=== PATIENT | male | born 1940 | race Caucasian/White ===

== ENCOUNTER 2016-10-25 11:48 | Emergency (ER) | payer MEDICARE ==
[2016-10-25 12:05] VITALS: BP 154/90
--- NOTE | 2016-10-25 12:13 | UC ---
Throat Pain/Nasal [place] HPI - HPI Summary HPI Summary: complaint of nasal congestion and cough that started approx 10 days ago headache across his forehead throat feels itchy from sinus drainage ears are popping often denies fever ,chills, body aches took some benadryl to help him sleep - History of Current Complaint Chief Complaint: UCRespiratory Stated Complaint: SINUS COMPLAINT Time Seen by Provider: 10/25/16 12:06 Hx Obtained From: Patient Cough: Productive Associated Signs & Symptoms: Positive: Sinus Discomfort, Nasal Discharge - Allergies/Home Medications Allergies/Adverse Reactions: Allergies Allergy/AdvReac Type Severity Reaction Status Date / Time Niacin AdvReac Rash Verified 10/25/16 12:01 PMH/Surg Hx/FS Hx/Imm Hx Previously Healthy: Yes Endocrine History Of: Denies: Diabetes Cardiovascular History Of: Reports: Cardiac Disorders - A FIB, recent neg nuclear test (02/2016), Hypertension - ON MEDS, Atrial Fibrillation Denies: Pacemaker/ICD, Congestive Heart Failure GI/ History Of: Reports: Gastroesophageal Reflux - on omeprazole Denies: Renal Disease Other History Of: Anticoagulant Therapy - 325mg ASA - Surgical History Surgical History: Yes Surgery Procedure, Year, and Place: 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 APPENDIX AGE 15 - Family History Known Family History: Positive: Cardiac Disease - father Negative: Hypertension, Diabetes - Social History Occupation: Retired Alcohol Use: Rare Substance Use Type: None Smoking Status (MU): Never Smoked Tobacco Review of Systems Constitutional: Negative Skin: Negative Eyes: Negative ENT: Nasal Discharge Respiratory: Cough Cardiovascular: Negative Gastrointestinal: Negative Genitourinary: Negative Motor: Negative Neurovascular: Negative Musculoskeletal: Negative Neurological: Negative Psychological: Negative All Other Systems Reviewed And Are Negative: Yes Physical Exam Triage Information Reviewed: Yes Appearance: No Pain Distress, Well-Nourished Vital Signs: Initial Vital Signs Temp 99.7 F 10/25/16 12:02 Pulse 84 10/25/16 12:02 Resp 16 10/25/16 12:02 BP 154/90 10/25/16 12:02 Pulse Ox 97 10/25/16 12:02 Vital Signs Reviewed: Yes Eyes: Positive: Conjunctiva Clear ENT: Positive: Pharyngeal erythema, Nasal congestion, Nasal drainage, TM bulging , Other: - frontal sinus tenderness. Negative: TM red Neck: Positive: No Lymphadenopathy Respiratory: Positive: Lungs clear, Normal breath sounds, No respiratory distress Cardiovascular: Positive: No Murmur, Pulses Normal, Other: - regularly irregular heart sounds Abdomen Description: Positive: Nontender, Soft Bowel Sounds: Positive: Present Musculoskeletal: Positive: No Edema Neurological: Positive: Alert Psychological Exam: Normal Skin Exam: Normal Throat Pain/Nasal Course/Dx - Course Course Of Treatment: exam completed. will treat w/antibiotics d/t length of time and frontal sinus tenderness - Differential Dx/Diagnosis Differential Diagnosis/HQI/PQRI: Otitis Media, Pharyngitis, Sinusitis, URI Provider Diagnoses: sinusitis Discharge - Discharge Plan Condition: Stable Disposition: HOME Prescriptions: Amoxicillin/Clavulanate TAB* [Augmentin TAB 875*] 875 mg PO BID #20 tab guaiFENesin ER TAB [Mucinex*] 600 mg PO BID #10 tab.er Patient Education Materials: Sinusitis (ED) Referrals: Vincent Ascencio MD [Primary Care Provider] - Additional Instructions: Please take antibiotic as directed. flush sinuses with normal saline twice a day Increase fluids and rest Take acetaminophen for fever or pain Please review your discharge instructions. If your symptoms do not improve please call your primary care provider or return to urgent care.
== END 2016-10-25 12:39 | disposition home or self-care (01) ==
LOC: UCEAST 11:48
DX: J32.9 Chronic sinusitis, unspecified (principal); I48.91 Unspecified atrial fibrillation; Z79.82 Long term (current) use of aspirin; Z88.3 Allergy status to other anti-infective agents; I10 Essential (primary) hypertension
CPT/HCPCS: 99212; G0463

== ENCOUNTER 2016-10-25 20:11 | Emergency (ER) | payer MEDICARE ==
--- NOTE | 2016-10-25 22:03 | RAD ---
INDICATION: Shortness of breath and cold symptoms x2 weeks COMPARISON: Chest x-ray dated March 09, 2016 TECHNIQUE: Single AP portable view of the chest was obtained. FINDINGS: Image quality is compromised due to the relative inferiority of a portable chest x-ray. The heart and mediastinum exhibit normal size and contour. There is faint atherosclerotic calcification at the arch of the aorta. The lungs are grossly clear. There is no evidence of a large pleural effusion. Visualized bones are normal for the patient's age. IMPRESSION: No radiographic evidence for acute cardiopulmonary abnormality on this portable chest x-ray.
--- NOTE | 2016-10-25 22:15 | ED ---
[place] Ron Claudia, scribed for Nicko Cat MD on 10/25/16 at 2138 . Complex/Multi-Sys Presentation - HPI Summary HPI Summary: 75 year old male presents to the ED with fever. Pt went to [facility] this pm for cough and congestion that has persisted for about 5 days. Pt was given Augmentin and d/c with Dx of sinusitis. When Pt returned home he noticed a fever of 104F and became concerned so he came to the ED. PMHx of AFIB and takes xarelto. - History Of Current Complaint Chief Complaint: EDGeneral Time Seen by Provider: 10/25/16 21:05 Hx Obtained From: Patient, Family/[employer] Onset/Duration: Gradual Onset, Lasting Days, Still Present Associated Signs And Symptoms: Positive: Cough, Fever, Other - congestion. Negative: SOB - Allergies/Home Medications Allergies/Adverse Reactions: Allergies Allergy/AdvReac Type Severity Reaction Status Date / Time Niacin AdvReac Rash Verified 10/25/16 12:01 PMH/Surg Hx/FS Hx/Imm Hx Previously Healthy: Yes Endocrine/Hematology History: Reports: Hx Anticoagulant Therapy - 325mg ASA Denies: Hx Diabetes Cardiovascular History: Reports: Hx Hypercholesterolemia, Hx Hypertension - ON MEDS, Other Cardiovascular Problems/Disorders - AFIB Denies: Hx Congestive Heart Failure, Hx Pacemaker/ICD Respiratory History: Denies: Other Respiratory Problems/Disorders - DENIES GI History: Reports: Other GI Disorders - ANAL FISSURE, COLON POLYPS, GERD History: Reports: Hx Kidney Infection Denies: Hx Renal Disease, Other Problems/Disorders Musculoskeletal History: Comment Only: Hx Back Problems - Low back pain Sensory History: Reports: Hx Contacts or Glasses Denies: Hx Deafness - Deaf in R ear, Hx Hearing Aid Opthamlomology History: Reports: Hx Contacts or Glasses Psychiatric History: Denies: Hx Panic Disorder - Surgical History Surgery Procedure, Year, and Place: 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 APPENDIX AGE 15 Hx Anesthesia Reactions: No Infectious Disease History: No Infectious Disease History: Denies: History Other Infectious Disease, Traveled Outside the [place] in Last 30 Days - Family History Known Family History: Positive: Cardiac Disease - father Negative: Hypertension, Diabetes - Social History Occupation: Employed Full-time Lives: With Family Alcohol Use: Rare Substance Use Type: Reports: None Hx Tobacco Use: No Smoking Status (MU): Never Smoked Tobacco Review of Systems Positive: Fever Eyes: Negative Positive: Other - sinus pain and chest congestion Cardiovascular: Negative Respiratory: Negative Gastrointestinal: Negative Genitourinary: Negative Musculoskeletal: Negative Skin: Negative Neurological: Negative Psychological: Normal All Other Systems Reviewed And Are Negative: Yes Physical Exam Triage Information Reviewed: Yes Vital Signs On Initial Exam: Initial Vitals Temp Pulse Resp BP Pulse Ox 99.8 F 96 18 182/102 96 10/25/16 20:24 10/25/16 20:24 10/25/16 20:24 10/25/16 20:24 10/25/16 20:24 Vital Signs Reviewed: Yes Appearance: Positive: Well-Appearing - comfortable, plesant, alert Eyes: Positive: EOMI, FLAKO ENT: Positive: TMs normal - TMs pearly white with no effusion bilaterally, Other - moist mucosa, no sinus percussion tenderness. Negative: Pharyngeal erythema Neck: Positive: Supple, Nontender Respiratory/Lung Sounds: Positive: Clear to Auscultation - good air movement. Negative: Rales Cardiovascular: Positive: IRR - somewhat irregualr rhythm 88 beats/min, S1, S2. Negative: Murmur, Rub, Tachycardia Abdomen Description: Positive: Nontender, Soft - flat Musculoskeletal: Positive: Other - no calf pitting edema. Negative: Edema Left , Edema Right Neurological: Positive: Alert, Oriented to Person Place, Time Psychiatric: Positive: Other - logical and coherent Diagnostics - Vital Signs Vital Signs Temp Pulse Resp BP Pulse Ox 10/25/16 21:21 92 158/106 95 10/25/16 21:19 85 96 10/25/16 21:18 148/118 10/25/16 21:10 99.5 F 84 16 158/106 96 10/25/16 20:24 99.8 F 96 18 182/102 96 - Laboratory Lab Statement: Any lab studies that have been ordered have been reviewed, and results considered in the medical decision making process. - Radiology CHEST XRAY Xray Interpretation: No Acute Changes - NO RADIOGRAPHIC EVIDENCE FOR ACUTE CARDIOPULMONARY ABNORMALITY ON THIS PORTABLE CHEST XRAY Radiology Interpretation Completed By: Radiologist Complex Multi-Symp Course/Dx Assessment/Plan: Doing quite well. Vital signs within nml limits, comfortable no signs of pneumonia on the chest xray . He has been placed on Augmentin an cough medicine and I believe this is appropriate for sinusitis, his chief complaint is head congestion and sinus pain. His cough appears mild; there are no significant risk factors for other diseases or infection. He and his will return from any worsening Sx otherwise start Augmentin and follow-up with PCP. - Diagnoses Provider Diagnoses: URI (upper respiratory infection) Discharge - Discharge Plan Condition: Good Disposition: HOME Patient Education Materials: Upper Respiratory Infection (ED) Referrals: Vincent Ascencio MD [Primary Care Provider] - 2 Days The documentation as recorded by the [place] luque Claudia accurately reflects the service I personally performed and the decisions made by me, Nicko Cat MD.
[2016-10-25 22:25] VITALS: BP 148/85
== END 2016-10-25 22:25 | disposition home or self-care (01) ==
LOC: ED 20:11
DX: J06.9 Acute upper respiratory infection, unspecified (principal); R50.9 Fever, unspecified; R05 Cough; R09.89 Other specified symptoms and signs involving the circulatory and respiratory systems; R06.02 Shortness of breath; J32.9 Chronic sinusitis, unspecified; I48.91 Unspecified atrial fibrillation; Z79.82 Long term (current) use of aspirin; Z88.3 Allergy status to other anti-infective agents; I10 Essential (primary) hypertension
CPT/HCPCS: 71010; 99212; 99283; G0463

== ENCOUNTER 2017-11-06 12:21 | Emergency (ER) | payer MEDICARE ==
[2017-11-06] MEDS ORDERED: Magnesium CITRATE* 300 ML BTL PO ONE ×2 (12:47→14:42)
--- NOTE | 2017-11-06 13:48 | ED ---
Abdominal Pain/Male - HPI Summary HPI Summary: Patient presents to the ED with CC of constipation. Last BM 10 days ago. Endorses bilateral lower quadrant pain. He has been feeling otherwise well. Recently discontinued amlodipine 2 weeks ago and placed on metroprolol. Also recently finished a course of antibiotics for a sinus infection, but doesn't recall the name. Hx of HTN and [place]. Currently on blood thinners. He is otherwise healthy and remains active. at bedside. Denies fevers, sweats, chills, chest pain, SOB, N/V/D. Symptoms are aggravated by nothing, alleviated by nothing. He has tried stool softeners without relief. He has been eating and drinking well until last night when he had early satiety last night at dinner. Has not eaten today. Passing gas until yesterday. Not burping. VS stable on arrival. Takes all medications and denies smoking or ETOH. - History of Current Complaint Chief Complaint: EDAbdPain Stated Complaint: ABD PAIN Time Seen by Provider: 11/06/17 12:34 Hx Obtained From: Patient Onset/Duration: Gradual Onset Timing: Constant Severity Initially: Moderate Severity Currently: Moderate Pain Intensity: 5 Pain Scale Used: 0-10 Numeric Location: Diffuse - lower bilateral quadrants Aggravating Factor(s): Nothing Alleviating Factor(s): Nothing Associated Signs And Symptoms: Positive: Negative - Risk Factors Testicular Torsion: Negative Cardiac Risk Factors: Hypertension - Allergies/Home Medications Allergies/Adverse Reactions: Allergies Allergy/AdvReac Type Severity Reaction Status Date / Time Niacin AdvReac Rash Verified 10/25/16 12:01 PMH/Surg Hx/FS Hx/Imm Hx Previously Healthy: Yes Endocrine/Hematology History: Reports: Hx Anticoagulant Therapy - 325mg ASA Denies: Hx Diabetes Cardiovascular History: Reports: Hx Hypercholesterolemia, Hx Hypertension - ON MEDS, Other Cardiovascular Problems/Disorders - AFIB Denies: Hx Congestive Heart Failure, Hx Pacemaker/ICD Respiratory History: Denies: Other Respiratory Problems/Disorders - DENIES GI History: Reports: Other GI Disorders - ANAL FISSURE, COLON POLYPS, GERD History: Reports: Hx Kidney Infection Denies: Hx Renal Disease, Other Problems/Disorders Musculoskeletal History: Comment Only: Hx Back Problems - Low back pain Sensory History: Reports: Hx Contacts or Glasses Denies: Hx Deafness - Deaf in R ear, Hx Hearing Aid Opthamlomology History: Reports: Hx Contacts or Glasses Psychiatric History: Denies: Hx Panic Disorder - Surgical History Surgery Procedure, Year, and Place: 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 APPENDIX AGE 15 Hx Anesthesia Reactions: No - Immunization History Hx Pertussis Vaccination: No Immunizations Up to Date: Unable to Obtain/Confirm Infectious Disease History: No Infectious Disease History: Denies: History Other Infectious Disease, Traveled Outside the [place] in Last 30 Days - Family History Known Family History: Positive: Cardiac Disease - father Negative: Hypertension, Diabetes - Social History Occupation: Employed Full-time Lives: With Family Alcohol Use: Rare Hx Substance Use: No Substance Use Type: Reports: None Hx Tobacco Use: No Smoking Status (MU): Never Smoked Tobacco Review of Systems - ROS Summary Review of Systems Summary: Constitutional: The patient denies fever, KERR. HEENT: Head: The patient denies headaches or dizziness. Eyes: The patient denies diplopia, blurry vision, eye pain, eye discharge, photophobia. Throat: The patient denies sore throats or hoarseness. Cardiovascular: The patient denies chest pain, palpitations, syncope, night cramps, or orthostasis. Respiratory: The patient denies cough, sputum production, hemoptysis, dyspnea, wheezing. Gastrointestinal: The patient denies odynophagia, dysphagia, hematemesis, melenemesis. Denies nausea or vomiting. Denies diarrhea. Endorses constipation x 10 days Genitourinary: Patient denies dysuria, hematuria, or pyuria. Patient denies back pain. Denies vaginal discharge, vaginal bleeding. Denies other urinary symptoms. Endocrine: The patient denies polydipsia, polyuria, or polyphagia. Muscles: The patient denies myalgia, strain or weakness. Joints: The patient denies arthralgia and/or arthritis. Constitutional: Negative Negative: Fever, Chills, Fatigue Eyes: Negative Cardiovascular: Negative Respiratory: Negative Positive: Abdominal Pain, Other - constipation Positive: no symptoms reported, see HPI Musculoskeletal: Negative Skin: Negative Neurological: Negative All Other Systems Reviewed And Are Negative: Yes Physical Exam - Summary Physical Exam Summary: Appearance: WDW, comfortable, pleasant, alert Skin: Soft dry skin, no lesions. Nailbeds pink with no cyanosis or clubbing. No petechia noted. Eyes: FLAKO, EOMI, Conjunctiva pink with no redness or exudates. Mouth: Dentition without lesions. Moist mucosa Neck: Full range of motion. Palpable thyroid. Trachea at midline. No lymphadenopathy. Pulm: Chest symmetrical expansion. No deformities on posterior chest wall. Lungs clear to auscultation and percussion, without adventitious sounds. CV: No JVD. No deformities on anterior chest wall. Heart sounds. RRR, Normal S1 and single S2. No S3, S4, rubs, or murmurs. Carotids 2+ bilaterally without bruits. . exam not performed GI: Bowel sounds absent in all 4 quadrants. No pain on deep palpation of all 4 quadrants. Negative ibarra's, negative obturator. Psoas not performed. No pain over mcburney's point. Musculoskeletal: Flexion and extension of neck without limitations. ROM WNL in all extremities. No deformities noted. Pulses full and equal. Neuro: Motor strength is 5/5 in upper and lower extremities bilaterally. A&OX3 Psych: Logical, coherent Triage Information Reviewed: Yes Vital Signs On Initial Exam: Initial Vitals Temp Pulse Resp BP Pulse Ox 97.0 F 68 15 139/88 98 11/06/17 12:25 11/06/17 12:25 11/06/17 12:25 11/06/17 12:25 11/06/17 12:25 Vital Signs Reviewed: Yes Appearance: Positive: Well-Appearing, Well-Nourished Skin: Positive: Warm, Skin Color Reflects Adequate Perfusion Head/Face: Positive: Normal Head/Face Inspection Eyes: Positive: EOMI, FLAKO, Conjunctiva Clear Neck: Positive: Supple, Nontender, No Lymphadenopathy Respiratory/Lung Sounds: Positive: Clear to Auscultation, Breath Sounds Present Cardiovascular: Positive: Normal, RRR, Pulses are Symmetrical in both Upper and Lower Extremities Bowel Sounds: Positive: Absent Musculoskeletal: Positive: Normal, Strength/ROM Intact Neurological: Positive: Speech Normal Psychiatric: Positive: Affect/Mood Appropriate AVPU Assessment: Alert - Arlen Coma Scale Coma Scale Total: 15 Diagnostics - Vital Signs Vital Signs Temp Pulse Resp BP Pulse Ox 11/06/17 12:25 97.0 F 68 15 139/88 98 - Laboratory Result Diagrams: 11/06/17 13:56 11/06/17 13:56 Lab Statement: Any lab studies that have been ordered have been reviewed, and results considered in the medical decision making process. Abdominal Pain Fem Course/Dx - Course Course Of Treatment: During the course of treatement, patient is evaluated for constipation. VS stable and he is in NAD. Patient is given mag citrate 150ml bottle. Xray obtained which shows constipation. He is given 300ml bottle mag citrate to home. To take 3-4 hours from now (1/2 bottle) and the other 1/2 before bed or in the morning. Drink plenty of water and follow up Wednesday with PCP. If symptoms fail to improve or burping or failing to pass gas - patient will return to the ED. Treatment options explained to patient. Patient understands the plan, voices no concerns at this time and understands the return precatuions given to them if they develop any worsening or changing symptoms. They are OK for discharge at this time. VS stable on discharge. Primary care follow up as agreed on discharge. - Diagnoses Differential Diagnosis/HQI/PQRI: Constipation Provider Diagnoses: Constipation Discharge - Discharge Plan Condition: Stable Disposition: HOME Patient Education Materials: Magnesium Citrate (By mouth), Constipation (ED) Referrals: Vincent Ascencio MD [Primary Care Provider] - Additional Instructions: Dx. Constipation As discussed, there are no signs of obstrucction and
[2017-11-06 14:09] LABS: ABS Basophils 0 10^3/ul (0-0.2); ABS Eosinophils 0.1 10^3/ul (0-0.6); ABS Lymphocytes 1.7 10^3/ul (1.0-4.8); ABS Monocytes 0.4 10^3/ul (0-0.8); ABS Neutrophils 3.4 10^3/ul (1.5-7.7); ABS Nucleated RBC 0 10^3/ul; Eosinophil % 0.9 % (0-6); Hematocrit 47 % (42-52); Hemoglobin 16.6 g/dl (14.0-18.0); Lymphocyte % 29.9 % (25-47); Mean Corpuscular HGB Conc 36 g/dl (31-36); Mean Corpuscular Hemoglobin 32 pg (27-31); Mean Corpuscular Volume 89 fL (80-94); Mean Platelet Volume 9 um3 (7.4-10.4); Nucleated Red Blood Cells % 0.1; Platelet Count 160 10^3/ul (150-450); Red Blood Count 5.21 10^6/ul (4.0-5.4); Red Cell Distribution Width 13 % (10.5-15); White Blood Count 5.6 10^3/ul (3.5-10.8)
--- NOTE | 2017-11-06 14:18 | RAD ---
Indication: Constipation, abdominal pain. Flat and upright views of the abdomen demonstrates no free air. No dilated loops of bowel are noted. The colon is filled with stool. IMPRESSION: No free air or obstruction is identified.
[2017-11-06 14:20] LABS: EGFR Non-African American 67.9 (>60)
[2017-11-06 15:26] VITALS: BP 115/85
== END 2017-11-06 15:24 | disposition home or self-care (01) ==
LOC: ED 12:21
DX: K59.00 Constipation, unspecified (principal); Z79.01 Long term (current) use of anticoagulants; Z86.79 Personal history of other diseases of the circulatory system; Z87.19 Personal history of other diseases of the digestive system; I25.2 Old myocardial infarction
CPT/HCPCS: 36415; 74019; 80053; 83605; 83735; 85025; 99282; A9270-GY

== ENCOUNTER 2019-09-23 11:01 | Emergency (ER) | payer MEDICARE ==
[2019-09-23 11:40] VITALS: BP 142/101
--- NOTE | 2019-09-23 12:07 | UC ---
Minor Trauma HPI - HPI Summary HPI Summary: patient injured left ribs a few days ago while bending over the back of a chair and jabbing his glasses in to his anterior ribs---tender to touch relief with Tylenol no sob--same day fell back landing on right hip--large bruise that is begining to resolve but is tender to touch - History of Current Complaint Chief Complaint: UCTrauma Stated Complaint: RIB INJURY Time Seen by Provider: 09/23/19 11:59 Hx Obtained From: Patient Onset/Duration: Sudden Onset, Lasting Days - 4, Still Present Onset Of Pain: Immediate Pain Intensity: 4 Pain Scale Used: 0-10 Numeric Mechanism Of Injury: Blunt Trauma Aggravating Factor(s): Nothing Alleviating Factor(s): OTC Meds Associated Signs And Symptoms: Positive: Ecchymosis. Negative: Loss Of Consciousness, Swelling Related History: Positive: Anticoagulants - Allergies/Home Medications Allergies/Adverse Reactions: Allergies Allergy/AdvReac Type Severity Reaction Status Date / Time niacin Allergy flushing, Verified 09/23/19 11:40 rash Home Medications: Home Medications Acetaminophen [Tylenol Extra Strength] 1,000 mg PO PRN 09/23/19 [History] Amlodipine Besylate [Norvasc] 5 mg PO DAILY 09/23/19 [History Confirmed 09/23/19 ] Lisinopril TAB* [Prinivil TAB*] 40 mg PO DAILY 09/23/19 [History Confirmed 09/23] Omeprazole 20 mg PO DAILY 09/23/19 [History Confirmed 09/23/19] PMH/Surg Hx/FS Hx/Imm Hx Previously Healthy: No Cardiovascular History: Hypertension, Atrial Fibrillation GI/ History: Gastroesophageal Reflux Other History Of: Anticoagulant Therapy - 325mg ASA - Surgical History Surgical History: Yes Surgery Procedure, Year, and Place: 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 APPENDIX AGE 15 - Family History Known Family History: Positive: Cardiac Disease - father Negative: Hypertension, Diabetes - Social History Occupation: Works From/At Home Lives: With Family Alcohol Use: Rare Substance Use Type: None Smoking Status (MU): Never Smoked Tobacco Review of Systems All Other Systems Reviewed And Are Negative: Yes Constitutional: Positive: Negative Skin: Positive: Bruising - right hip Eyes: Positive: Negative ENT: Positive: Negative Respiratory: Positive: Negative Cardiovascular: Positive: Other - left anterior ribs are tender to touch Gastrointestinal: Positive: Negative Genitourinary: Positive: Negative Motor: Positive: Negative Neurovascular: Positive: Negative Musculoskeletal: Positive: Arthralgia Neurological: Positive: Negative Psychological: Positive: Negative Is Patient Immunocompromised?: No Physical Exam Triage Information Reviewed: Yes Appearance: Well-Appearing, No Pain Distress, Well-Nourished Vital Signs: Initial Vital Signs Temp 97.2 F 09/23/19 11:31 Pulse 53 09/23/19 11:31 Resp 16 09/23/19 11:31 BP 142/101 09/23/19 11:31 Pulse Ox 99 09/23/19 11:31 Vital Signs Reviewed: Yes Eye Exam: Normal Eyes: Positive: Conjunctiva Clear ENT Exam: Normal ENT: Positive: Normal ENT inspection, Hearing grossly normal, Uvula midline. Negative: Nasal congestion, Trismus, Muffled voice, Hoarse voice, Dental tenderness, Sinus tenderness Dental Exam: Normal Neck exam: Normal Neck: Positive: Supple, Nontender Respiratory Exam: Normal Respiratory: Positive: Chest non-tender, Lungs clear, Normal breath sounds, No respiratory distress, No accessory muscle use Cardiovascular Exam: Normal Cardiovascular: Positive: RRR, No Murmur, Pulses Normal, Brisk Capillary Refill Abdominal Exam: Normal Abdomen Description: Positive: Nontender, No Organomegaly, Soft Bowel Sounds: Positive: Present Musculoskeletal Exam: Normal Musculoskeletal: Positive: Strength Intact, ROM Intact, No Edema Neurological Exam: Normal Neurological: Positive: Alert, Muscle Tone Normal Psychological Exam: Normal Skin Exam: Other Skin: Positive: Other - bruising left hip Diagnostics - Radiology No standard instances Radiology Interpretation Completed By: Radiologist - rib and hip with out evidence of fracture Minor Trauma Course/Dx - Course Course Of Treatment: rice, tylenol follow with pcp prn for injury and blood pressure recheck - Differential Dx/Diagnosis Provider Diagnosis: Contusion of rib on right side, Contusion of right hip Discharge ED - Sign-Out/Discharge Documenting (check all that apply): Patient Departure All imaging exams completed and their final reports reviewed: Yes - Discharge Plan Condition: Stable Disposition: HOME Patient Education Materials: Acetaminophen (By mouth), Hip Contusion (ED), Rib Contusion (ED) Referrals: Vincent Ascencio MD [Primary Care Provider] - 2 Weeks (for recheck and bp recheck ) - Billing Disposition and Condition Condition: STABLE Disposition: Home
== END 2019-09-23 13:08 | disposition home or self-care (01) ==
LOC: UCEAST 11:01
DX: S20.211A Contusion of right front wall of thorax, initial encounter (principal); S70.01XA Contusion of right hip, initial encounter; I10 Essential (primary) hypertension; K21.9 Gastro-esophageal reflux disease without esophagitis; Z79.899 Other long term (current) drug therapy; Z88.8 Allergy status to other drugs, medicaments and biological substances; W22.8XXA Striking against or struck by other objects, initial encounter; Y92.9 Unspecified place or not applicable
CPT/HCPCS: 99211; G0463